=== PATIENT | female | born 1945 | race Caucasian/White ===

== ENCOUNTER → 2018-06-30 | Outpatient (CLI) | payer MEDICARE ==
[~2018-06-30] MED LIST: REGADENOSON 0.4 MG/5 ML SYRINGE ONE
== END | disposition home or self-care (01) ==
LOC: CFH 08:05
PROVIDERS: ATTEND Internal Medicine Cardiovascular Disease
DX: I08.0 Rheumatic disorders of both mitral and aortic valves (principal); I10 Essential (primary) hypertension; E78.5 Hyperlipidemia, unspecified; E11.9 Type 2 diabetes mellitus without complications
CPT/HCPCS: 93306; J2785

== ENCOUNTER 2018-07-09 08:28 | Outpatient (CLI) | payer MEDICARE | END 2018-07-09 23:59 | disposition home or self-care (01) | LOC: CFH 08:28 | PROVIDERS: ATTEND Internal Medicine Cardiovascular Disease | DX: I10 Essential (primary) hypertension (principal); R94.31 Abnormal electrocardiogram [ECG] [EKG] | CPT/HCPCS: 78452; 93017; A9502 ==

== ENCOUNTER → 2018-08-22 | Outpatient (CLI) | payer MEDICARE | END | disposition home or self-care (01) | LOC: CFH 10:05 | PROVIDERS: ATTEND Family Medicine | DX: Z12.31 Encounter for screening mammogram for malignant neoplasm of breast (principal); M81.8 Other osteoporosis without current pathological fracture; E78.5 Hyperlipidemia, unspecified; R94.31 Abnormal electrocardiogram [ECG] [EKG] | CPT/HCPCS: 75571; 77080; 77067 ==

== ENCOUNTER → 2019-12-29 | Outpatient (CLI) | payer MEDICARE ==
[~2019-12-29] MED LIST changes: +BIOT25005 PO; +GLIP2.5T3 PO; +NAPR220C2 PO; -REGADENOSON 0.4 MG/5 ML SYRINGE ONE; +RESV250C2 PO; +TURMERIC PO
[2019-12-29 12:08] LABS: BASOPHILS % (AUTO) 1 % (0-1); EOSINOPHILS % (AUTO) 0 % (1-7); LYMPHOCYTES % (AUTO) 24 % (22-44); MEAN CORPUSCULAR HEMOGLOBIN 31.5 pg (27.0-34.8); MEAN CORPUSCULAR HGB CONC 33.5 g/dL (32.4-35.8); MEAN PLATELET VOLUME 8.4 fL (7.4-10.4); MONOCYTES % (AUTO) 8 % (2-9); NEUTROPHILS % (AUTO) 68 % (42-75); PLATELET COUNT 315 x10^3/uL (130-400); RED BLOOD COUNT 4.77 x10^6/uL (3.82-5.3); RED CELL DISTRIBUTION WIDTH 13.5 % (9.6-15.2)
[2019-12-29 12:12] LABS: MD NO
[2019-12-29 12:18] LABS: ALBUMIN 4.1 g/dL (3.4-5.0); ANION GAP 4 mmol/L (5-15); CALCIUM 9.3 mg/dL (8.5-10.1); CHLORIDE 107 mmol/L (98-107)
[2019-12-29 12:22] LABS: ALANINE AMINOTRANSFERASE 16 U/L (12-78); ALKALINE PHOSPHATASE 105 U/L (45-117); BILIRUBIN,TOTAL 0.6 mg/dL (0.2-1.0); CREATININE 0.65 mg/dL (0.55-1.02); TOTAL PROTEIN 7.6 g/dL (6.4-8.2)
[2019-12-29 12:58] LABS: MICROSCOPIC AUTO
== END | disposition home or self-care (01) ==
LOC: STAR 09:48
PROVIDERS: ATTEND Orthopaedic Surgery
DX: Z01.810 Encounter for preprocedural cardiovascular examination (principal); Z01.818 Encounter for other preprocedural examination; M16.11 Unilateral primary osteoarthritis, right hip; M25.551 Pain in right hip
CPT/HCPCS: 36415; 80053; 81001; 85025; 87081; 87806; 93005; G0475

== ENCOUNTER → 2020-01-06 | Outpatient (CLI) | payer MEDICARE | END | disposition home or self-care (01) | LOC: CLISVCS 08:43 | PROVIDERS: ATTEND Anesthesiology | DX: Z20.828 Contact with and (suspected) exposure to other viral communicable diseases (principal) | CPT/HCPCS: 87635 ==

== ENCOUNTER 2020-01-11 06:25 | Observation (INO) | payer MEDICARE ==
[~2020-01-11] VITALS: Ht 157.5 cm; Wt 52.4 kg
[2020-01-11] MEDS ORDERED: KETOROLAC 60 MG/2 ML ONE (06:40)
[2020-01-11] MEDS ORDERED: SODIUM CHLORIDE 0.9% 50 ML ONE (06:41)
[2020-01-11] MEDS ORDERED: EPINEPHRINE 1 MG/ML, 1ML ONE (06:41)
[2020-01-11] MEDS ORDERED: TRANEXAMIC ACID 100 MG/ML, 10ML ONE (06:41)
[2020-01-11] MEDS ORDERED: ROPIvacaine/PF 0.2%, 20 ML ONE (06:41)
[2020-01-11] MEDS ORDERED: morphine SULFATE/PF 1 MG/ML, 10ML ONE (06:41)
[2020-01-11] MEDS ORDERED: VANCOMYCIN 1,000 MG ONE (06:41)
[2020-01-11] MEDS ORDERED: LACTATED RINGERS 1,000 ML IV ONE (06:44)
[2020-01-11] MEDS ORDERED: CHLORHEXIDINE 15 ML UDC MM STA (06:44)
[2020-01-11] MEDS ORDERED: CHLORHEXIDINE 15 ML UDC ONE (06:51)
[2020-01-11] MEDS ORDERED: ACETAMINOPHEN 500 MG TABLET PO STA (07:14)
[2020-01-11] MEDS ORDERED: ACETAMINOPHEN 500 MG TABLET ONE (07:15)
[2020-01-11] MEDS ORDERED: MIDAZOLAM 1 MG/ML, 2ML ONE (07:17)
[2020-01-11] MEDS ORDERED: FENTANYL PF 250 MCG/5ML ONE (07:18)
[2020-01-11] MEDS ORDERED: CEFAZOLIN 1,000 MG ONE ×2 (07:18→07:27)
[2020-01-11] MEDS ORDERED: DEXAMETHASONE 4 MG/ML, 1ML ONE (07:18)
[2020-01-11] MEDS ORDERED: PROPOFOL 10 MG/ML, 20ML ONE (07:27)
[2020-01-11] MEDS ORDERED: ROCURONIUM 10MG/ML,5ML ONE (07:27)
[2020-01-11] MEDS ORDERED: ONDANSETRON 2MG/ML, 2ML ONE (07:27)
[2020-01-11] MEDS ORDERED: SUCCINYLCHOLINE 20 MG/ML, 10ML ONE (07:27)
[2020-01-11] MEDS ORDERED: hydrALAzine 20 MG/ML, 1ML IV PRN (08:00)
[2020-01-11] MEDS ORDERED: LABETALOL 5MG/ML, 20ML IV PRN (08:00)
[2020-01-11] MEDS ORDERED: LORazepam 2 MG/ML, 1ML IVPush PRN (08:00)
[2020-01-11] MEDS ORDERED: PROMETHAZINE 12.5 MG SUPP PR PRN (08:00)
[2020-01-11] MEDS ORDERED: DIAZEPAM 5 MG/ML, 2ML IVPush PRN (08:00)
[2020-01-11] MEDS ORDERED: MIDAZOLAM 1 MG/ML, 2ML IV PRN (08:00)
[2020-01-11] MEDS ORDERED: DIPHENHYDRAMINE 50 MG/ML, 1ML IVPush PRN (08:00)
[2020-01-11] MEDS ORDERED: TRANEXAMIC ACID 1,000 MG in SODIUM CHLORIDE 0.9% 100 ML IV ONE (08:00)
[2020-01-11] MEDS ORDERED: OXYcodone 5 MG/5 ML ORAL.SOL UDC PO PRN (08:00)
[2020-01-11] MEDS ORDERED: ACETAMINOPHEN 325 MG TABLET PO PRN (08:00)
[2020-01-11] MEDS ORDERED: EPHEDRINE 50 MG/ML, 1ML IVPush PRN (08:00)
[2020-01-11] MEDS ORDERED: ONDANSETRON 2MG/ML, 2ML IVPush PRN ×2 (08:00)
[2020-01-11] MEDS ORDERED: ALBUTEROL SULFATE 2.5 MG/3 ML NPPB PRN (08:00)
[2020-01-11] MEDS ORDERED: FENTANYL PF 100 MCG/2ML IV PRN (08:00)
[2020-01-11] MEDS ORDERED: DIPHENHYDRAMINE 50 MG CAPSULE PO PRN (08:00)
[2020-01-11] MEDS ORDERED: PROMETHAZINE 25 MG/ML, 1ML IVPush PRN (08:00)
[2020-01-11] MEDS ORDERED: D5%-0.45% NACL 1,000 ML IV SCH (08:00)
[2020-01-11] MEDS ORDERED: MEPERIDINE/PF 25MG/0.5ML IVPush PRN (08:00)
[2020-01-11] MEDS ORDERED: morphine SULFATE 10 MG/ML, 1ML IVPush PRN (08:00)
[2020-01-11] MEDS ORDERED: HYDROmorphone 1 MG/ML, 1ML INJ IVPush PRN (08:00)
[2020-01-11] MEDS ORDERED: BACITRACIN 50,000 UNIT ONE (08:13)
[2020-01-11] MEDS ORDERED: FENTANYL PF 100 MCG/2ML ONE (08:48)
[2020-01-11] MEDS ORDERED: OXYcodone 5 MG/5 ML ORAL.SOL UDC ONE (09:36)
[2020-01-11] MEDS ORDERED: MEPERIDINE/PF 25MG/ML,1ML ONE (09:36)
[2020-01-11] MEDS ORDERED: DIAZEPAM 5 MG/ML, 2ML ONE (09:41)
[2020-01-11] MEDS: D5%-0.45% NACL 1,000 ML IV SCH ×3 (11:31→22:10)
[2020-01-11 14:15] VITALS: BP 127/63
[2020-01-11] MEDS ORDERED: NAPROXEN 220 MG HOMEMEDPO PRN (15:00)
[2020-01-11] MEDS: CEFAZOLIN PMX 1GM/50ML 50 ML IVPB SCH (19:57)
[2020-01-11 20:21] VITALS: BP 109/52
[2020-01-11] MEDS ORDERED: ZOLPIDEM 5MG TABLET PO PRN (21:00)
[2020-01-11] MEDS: OXYcodone/APAP 7.5/325MG TABLET PO PRN (21:50)
[2020-01-11 23:56] VITALS: BP 95/58
[2020-01-12] MEDS: CEFAZOLIN PMX 1GM/50ML 50 ML IVPB SCH ×2 (03:47→11:15)
[2020-01-12 03:59] VITALS: BP 97/51
[2020-01-12] MEDS: D5%-0.45% NACL 1,000 ML IV SCH ×3 (04:30→13:59)
[2020-01-12] MEDS: OXYcodone/APAP 7.5/325MG TABLET PO PRN ×3 (06:13→16:28)
[2020-01-12] MEDS ORDERED: VANCOMYCIN PMX 1GM/200ML 200 ML IVPB ONE (07:00)
[2020-01-12 07:20] VITALS: BP 96/42
[2020-01-12] MEDS ORDERED: DOCUSATE 100 MG CAPSULE PO SCH (09:00)
[2020-01-12] MEDS ORDERED: RESVERATROL 250 MG HOMEMEDPO SCH (09:00)
[2020-01-12] MEDS ORDERED: BIOTIN 5000MCG HOMEMEDPO SCH (09:00)
[2020-01-12] MEDS: ASPIRIN 325 MG TABLET EC PO SCH ×2 (11:15→16:30)
[2020-01-12] MEDS ORDERED: NAPROXEN 250 MG TABLET PO PRN (13:00)
[2020-01-12 14:05] VITALS: BP 97/46
[2020-01-12] MEDS ORDERED: ASPI81TA45 PO (16:55)
[2020-01-13] MEDS ORDERED: TURMERIC HOMEMEDPO SCH (09:00)
== END 2020-01-12 18:10 | disposition home or self-care (01) ==
LOC: OR 06:25 → 4NE 14:29 → INTOOBSV 22:49 → OUT 22:49
PROVIDERS: ADMIT Orthopaedic Surgery; ATTEND Orthopaedic Surgery
DX: M16.11 Unilateral primary osteoarthritis, right hip (principal); M81.0 Age-related osteoporosis without current pathological fracture; I10 Essential (primary) hypertension; E11.9 Type 2 diabetes mellitus without complications; E78.5 Hyperlipidemia, unspecified; Z87.891 Personal history of nicotine dependence; Z79.899 Other long term (current) drug therapy
CPT/HCPCS: 27130; 36415; 73501; 82962; 85018; 86850; 86900; 96365; 96366; 96367; 97161; 97165; C1713; C1776; G0378; J0171; J0330; J0690; J1100; J1885; J2175; J2250; J2274; J2405; J2704; J2795; J3010; J3360; J3370; J7120